=== PATIENT | male | born 1980 | race Caucasian/White ===

== ENCOUNTER 2022-01-07 17:27 | Inpatient (IN) | payer BC ==
[~2022-01-07] VITALS: Ht 175.3 cm; Wt 95.3 kg
[2022-01-07 18:18] LABS: HEMOGLOBIN 17.8 gm/dl (14.0-17.5); RED BLOOD COUNT 5.47 M/UL (4.20-5.50); WHITE BLOOD COUNT 26.4 K/UL (4.5-11.0)
[2022-01-07 18:41] LABS: BUN/CREATININE RATIO 18 (0-10)
[2022-01-08 04:32] LABS: WHITE BLOOD COUNT 19.8 K/UL (4.5-11.0)
[2022-01-08 04:33] LABS: RED BLOOD COUNT 4.79 M/UL (4.20-5.50)
[2022-01-08 04:34] LABS: HEMOGLOBIN 15.3 gm/dl (14.0-17.5)
[2022-01-08 06:14] LABS: BUN/CREATININE RATIO 14 (0-10)
[2022-01-08] MEDS ORDERED: VIAGRA100 MG PO (07:40)
[2022-01-08] MEDS ORDERED: DEPO-TESTO100 MG/1 M IM (07:41)
[2022-01-09 02:41] LABS: HEMOGLOBIN 14.7 gm/dl (14.0-17.5); RED BLOOD COUNT 4.6 M/UL (4.20-5.50); WHITE BLOOD COUNT 22.3 K/UL (4.5-11.0)
[2022-01-09 02:58] LABS: BUN/CREATININE RATIO 15 (0-10)
[2022-01-10 04:23] LABS: RED BLOOD COUNT 4.69 M/UL (4.20-5.50)
[2022-01-10 04:29] LABS: WHITE BLOOD COUNT 11.7 K/UL (4.5-11.0)
[2022-01-10 04:51] LABS: BUN/CREATININE RATIO 18 (0-10)
[2022-01-10] MEDS ORDERED: MUCINEX600 MG PO (10:43)
[2022-01-10] MEDS ORDERED: BENZONATATE200 MG PO (10:43)
[2022-01-10] MEDS ORDERED: LEVOFLOXACIN750 MG PO (10:43)
== END 2022-01-10 12:03 | disposition home or self-care (01) | DRG 871 ==
LOC: ER1 17:27 → CDU 21:07 → PROG CARE 21:07
PROVIDERS: Family Medicine; Internal Medicine; ADMIT Internal Medicine
DX: A41.9 Sepsis, unspecified organism (principal); J18.9 Pneumonia, unspecified organism; J96.01 Acute respiratory failure with hypoxia; E87.1 Hypo-osmolality and hyponatremia; Z20.822 Contact with and (suspected) exposure to COVID-19; R65.20 Severe sepsis without septic shock; E86.0 Dehydration; E83.42 Hypomagnesemia; E83.39 Other disorders of phosphorus metabolism; I95.9 Hypotension, unspecified; Z82.49 Family history of ischemic heart disease and other diseases of the circulatory system; Z87.01 Personal history of pneumonia (recurrent)
CPT/HCPCS: 0240U; 36415; 36600; 71045; 80048; 80053; 80202; 81001; 82550; 82553; 82803; 83036; 83605; 83735; 83880; 84100; 84439; 84443; 84484; 85025; 85610; 86140; 87040; 87070; 87077; 87081; 87086; 87186; 87205; 93005; 94640; 94664; 94760; 96365; 96366; 96375; 99285; J0456; J0692; J0696; J1335; J1650; J2270; J2405; J3370; J3475; J7030; J7070; Q9967